=== PATIENT | female | born 1970 | race Caucasian/White ===

== ENCOUNTER 2020-06-09 13:25 | Outpatient (REF) | payer OTHER, SELFPAY | END 2020-06-09 13:26 | disposition home or self-care (01) | LOC: HO.LAB 13:25 | PROVIDERS: Visit Provider Internal Medicine | DX: Z20.828 Contact with and (suspected) exposure to other viral communicable diseases (principal) | CPT/HCPCS: C9803; U0003 ==

== ENCOUNTER 2025-05-31 09:52 | Outpatient (AMB) | payer OTHER, SELFPAY ==
--- NOTE | 2025-05-31 10:02 | MHC.OFFVIS ---
Vital Signs 05/31/25 10:03 Height 5 ft 6 in Weight 179 lb BMI 28.9 BP 130/82 Intake Visit Reasons: menopause symptoms Regulatory Affairs Strategy Specialist Required: Yes Regulatory Affairs Strategy Specialist Language: Director New Product Services: Regulatory Affairs Strategy Specialist Present (in person) Regulatory Affairs Strategy Specialist Name: Reba CHAUDHARY Information Interpreted: non-clinical & clinical Accompanied by: Self / Same As Patient Allergies naproxen Allergy (Mild, Verified 05/31/25 10:05) Stomach Upset Post menopausal: Yes HPI Comments Details: Presenting complaining of hot flashes over the last 2 years twice a day not associated with any quality of life disturbance or night sleep , in addition the patient has been complaining of hair loss has seen patient registration clerk had workup done and was referred to see OBGYN the rule out endocrinological cause of her hair loss. The patient reports mild hair growth over the last few years on her chin PFSH Medical History ADHD (attention deficit hyperactivity disorder) HTN (hypertension) Anxiety Depression Surgical History Hx of eye surgery Hx of abdominoplasty Hx of hernia repair Hx of gastric bypass Hx of tubal ligation Family History Mother HTN (hypertension) Father Heart disease Other Heart attack Social History Household Members Other:: daughter Housing: Apartment Alcohol intake: never Patient Tobacco Use Status: Former Tobacco user Years Smoked: 2 Current occupational status: disabled Sexual orientation: Straight/Heterosexual Gender identity: Female Female Reproductive History Menstrual Menopause type: natural Total pregnancies: 3 Full term: 2 Number of Living Children: 2 Ab spontaneous: 1 Review of Systems Const All systems reviewed & are unremarkable except as noted in HPI and below Reports as per HPI and Reports no additional complaints GI Reports no additional complaints Reports no additional complaints Physical Exam Vital Signs: Last Vital Signs BP 130/82 05/31/25 10:03 BMI result Body Mass Index 28.9 Assessment & Plan Assessment & Plan (1) Loss of hair: Code(s): L65.9 - Nonscarring hair loss, unspecified Category: Medical Plan: Will order 17 hydroxy progesterone and testosterone total and free if the results and treat accordingly (2) Hot flashes: Code(s): R23.2 - Flushing Category: Medical Plan: Discussed with the patient the options of treatment of hot flashes including hormonal replacement therapy, all the pros, cons, risks and benefits (benefits= prevention of hot flashes, atrophic vaginitis, osteoporosis, decrease colon ca risk; also discussed with the patient the risks of KS, Breast ca, DVT, PE, Strokes). In addition, discussed with the patient non hormonal treatment options for hot flashes treatment in surgical menopausal patient. Options discussed with the patient include the following: SSRI/SNRIs , difficulty has been demonstrated in multiple trials clinical response is more rapid (days) than typical response to SSRI for depression (weeks), they are equally effective in natural versus surgical menopause, they have similar modest benefit for hot flashes; In addition to Effexor and Gabapentin All pros and cons, risks and benefits of each were discussed with the patient, the patient would like to think about it and get back to us. Orders: Orders 17 Hydroxyprogesterone Today L65.9 - Nonscarring hair loss, unspecified Testosterone, Free/Total Today L65.9 - Nonscarring hair loss, unspecified Coding Level of Care Code New Pt Level 3 (90344) Diagnoses Loss of hair L65.9 Hot flashes R23.2
[2025-05-31 10:03] VITALS: BP 130/82; BMI 28.9
--- OUTSIDE RECORDS SUMMARY | 2025-05-31 11:51 | XMS_ITS | Encounter Summary ---
Author Organization [facility] Address [address] [place] [address] Care Team Providers Care Heel Compressor Name Role Phone Anabel Frausto MD Primary Care Prov ider Encounter Details Date Type Department Care Team (Latest Contact Info) Description 07/10/2024 Lab Requisition [facility] - Main Lab [address] [place] [phone] Addison Dawson MD [address] [facility] [address] [place] [phone] Encounter for gynecological examination (general) (routine) without abnormal findings Social History Tobacco Use Types Packs/Day Years Used Date Smoking Tobacco: Former Smokeless Tobacco: Never Alcohol Use Standard Drinks/Week Comments No 0 (1 standard drink = 0.6 oz pur e alcohol) Comments No Sex and Gender Information Value Date Recorded Sex Assigned at Female 09/01/2024 10:00 AM EST Legal Sex Female 8:59 AM EST Gender Identity Female 09/01/2024 10:00 AM EST Sexual Orientation Straight 09/01/2024 10 :00 AM EST documented as of this encounter Plan of Treatment Upcoming Encounters Date Type Department Care Team (Late st Contact Info) Description 07/06/2025 12:00 PM EST Ancillary Procedure [facility] [address] [facility] [address] [place] [phone] 08/17/2025 3:00 PM EST Office Visit Adult Medicine [address] [phone] Anabel Frausto MD [address] [place], [place] documented as of this encounter Procedures Procedure Name Priority Date/Time Associated Diagnosis Comments PAP SMEAR Routine 07/09/2024 12:00 AM EST Encounter for gynecological examination (general) (routine) without abnormal findings documented in this encounter Results * Pap smear (07/09/2024 12:00 AM EST) Interpretation Negative for intraepithelial lesion or malignancy 07/15/2024 10:13 AM [facility] at [address] EST General Categorization Negative 07/15/2024 10:13 AM [facility] Specimen Adequacy Satisfactory for evaluation, endocervical/yu sformation zone component present 07/15/2024 10:13 AM [facility] Pap Methodology Liquid Based Pap Test 07/15/2024 10:13 AM [facility] Disclaimer The Pap test is a screening test which carries an inherent false negative rate. These test results should be correlated with the patient's clinical findings and history. This Pap test was processed using an automated screening system. Technical cytopathology services provided by [facility], at [address] [place] [address] (CLIA # [id number]/Valentin Sales MD, [place] Worker.) 07/15/2024 10:13 AM [facility] Console Pap Interpretation Reported 07/15/2024 10:13 AM [facility] Brushing/Spatula Cervix uteri structure / Unknown 07/09/2024 07/10/2024 8:09 AM EST Addison Dawson MD LAB CYTOLOGY ORDERABLES Final Result [facility] [address] [place] [address], documented in this encounter Visit Diagnoses Diagnosis Encounter for gynecological examination (general) (routine) without abnormal findings documented in this encounter Care Teams Heel Compressor Relationship Specialty Start Date End Date Anabel Frausto MD [address] [place] [phone] PCP - General Internal Medicine 07/10/24 documented as of this encounter
--- OUTSIDE RECORDS SUMMARY | 2025-05-31 11:51 | XMS_ITS | Encounter Summary ---
Author Organization [facility] Address [address] [place] [address] Care Team Providers Care Manager Database Name Role Phone Anabel Frausto MD Primary Care Prov ider Encounter Details Date Type Department Care Team (Late st Contact Info) Description 01/22/2025 Lab Requisition [facility] - Main Lab [address] [place] [phone] Fran Marc MD [address] [place] [address] Dysuria Social History Tobacco Use Types Packs/Day Years Used Date Smoking Tobacco: Former Smokeless Tobacco: Never Alcohol Use Standard Drinks/Week Comments No 0 (1 standard drink = 0.6 oz pur e alcohol) Housing Instability Answer Date Recorde d Are you worried that in the next 2 months you may not have stable housing? No 11/05/2024 Food Access & Nutrition Answer Date Rec orded Do you have access to a vari ety of food including fruits and vegetables? Yes 11/05/2024 Health Literacy Answer Date Recorded How often do you need to hav e someone help you when you read instructions, pamphlets, or other written material from your doctor or pharmacy? Never 11/05/2024 Caregiver: How often do you need to have someone help you when you read instructions, pamphlets, or other written material from your doctor or pharmacy? Not on file 11/05/2024 Financial Risk Answer Date Recorded How hard is it for you to pa y for the very basics like food, housing, medical care, and air conditioning / heating? Not very hard 11/05/2024 Transportation Answer Date Recorded Has the lack of transportati on kept you from meetings, work, or from getting things needed for daily living? No Has the lack of transportati on kept you from medical appointments or from getting medications? No 11/05/2024 Social Isolation Answer Date Recorded How often do you feel lonely or isolated from th ose around you? Never 11/05/2024 Food Risk Answer Date Recorded Within the past 12 months we worried whether our food would run out before we got money to buy more. Never true 11/05/2024 Within the past 12 months th e food we bought just didn't last and we didn't have money to get more. Never true 11/05/2024 Dependent Care Answer Date Recorded Do you need help finding or paying for care for your loved ones. For example, child adolescent psychiatrist or elderly care for an older adult? No 11/05/2024 Education Answer Date Recorded Do you think completing more education or training, like finishing a GED, going to college, or learning a trade, would be helpful for you? N/A 11/05/2024 Employment and Income Answer Date Recor ded During the last four weeks, have you been actively looking for work? No 11/05/2024 Living Situation Answer Date Recorded What is your living situation? Unrecognized valu e 11/05/2024 Comments No Sex and Gender Information Value [...] Description 07/06/2025 12:00 PM EST Ancillary Procedure [facility] [address] [place] [address] 08/17/2025 3:00 PM EST Office Visit Adult Medicine [address] [phone] Anabel Frausto MD [address] [place] [address] documented as of this encounter Procedures Procedure Name Priority Date/Time Associated Diagnosis Comments BACTERIAL IDENTIFICATION AND SUSCEPTIBILITY, AEROBIC Routine 01/21/2025 12:00 AM EDT Dysuria documented in this encounter Results * Bacterial identification and susceptibility, aerobic (01/21/2025 12:00 AM EDT) Culture, Bacterial ID and Sensitivity Mixed urogenital johan, no uropathogens present. Suggest repeat specimen, if clinically indicated. 01/22/2025 1:[address] [facility] Other Urine specimen from urethra / Unknown 01/21/2025 01/22/2025 9:38 AM EDT us Fran Marc MD LAB MICROBIOLOGY - GENER AL ORDERABLES Final Result [facility] [address] [place] [address], documented in this encounter Visit Diagnoses Diagnosis Dysuria documented in this encounter Additional Health Concerns Assessment Noted Time PHQ-9 Depression Total Score: 0 11/06/19 10:13 AM EDT documented as of this encounter Care Teams Manager Database Relationship Specialty Start Date End Date Anabel Frausto MD [address] [place] [address] PCP - General Internal Medicine 07/10/24 documented as of this encounter
--- OUTSIDE RECORDS SUMMARY | 2025-05-31 11:52 | XMS_ITS | Clinical Summary ---
Author Organization [facility] [address] [facility] Address [address] [place] [address] Phone Care Team Providers Care Yarn Twister Name Role Phone Anabel Frausto MD Primary Care Prov ider Allergies Active Allergy Reactions Criticality Noted Date Comments Naproxen Other 01/29/2022 Upset stomach, gastric bypass Medications amphetamine-dextro amphetamine XR (ADDERALL XR) 30 mg 24 hr capsule Take 1 capsule (30 mg total) by mouth. 07/09/19 24 Active biotin 10,000 mcg tablet,chewable Chew 10,000 mcg. Active blood pressure test kit (BLOOD PRESSURE MONITOR MISC) 1 Device by Other route. 01/14/20 14 Active gabapentin (NEURONTIN) 800 mg tablet Take 1 tablet (800 mg total) by mouth. 07/18/19 24 Active hydrOXYzine HCL (ATARAX) 50 mg tablet Take 1 tablet (50 mg total) by mouth 3 (three) times a day. Active melatonin 5 mg disintegrating tablet Take 1 tablet (5 mg total) by mouth. 11/15/19 23 Active minoxidiL (LONITEN) 2.5 mg tablet Take 1 tablet (2.5 mg total) by mouth 1 (one) time each day. 10/06/19 23 Active multivit-minerals/ folic acid (CENTRUM ADULTS ORAL) Take by mouth. Active venlafaxine XR (EFFEXOR-XR) 150 mg 24 hr capsule Take 1 capsule (150 mg total) by mouth 1 (one) time each day. Active zolpidem CR (AMBIEN CR) 12.5 mg CR tablet Take 1 tablet (12.5 mg total) by mouth at bedtime as needed. Active cetirizine (ZyrTEC) 10 mg tablet TAKE 1 TABLET BY MOUTH DAILY. 30 tablet 4 08/17/19 25 Active amphetamine-dextro amphetamine (ADDERALL) 10 mg tablet 08/13/19 25 Active dutasteride (AVODART) 0.5 mg capsule Take 1 capsule (0.5 mg total) by mouth. 07/29/19 25 Active tamsulosin (FLOMAX) 0.4 mg 24 hr capsule 08/20/19 25 Active loratadine (CLARITIN) 10 mg tablet Take 1 tablet (10 mg total) by mouth 1 (one) time each day. 90 each 3 08/25/19 25 026 Active diphenhydrAMINE (Banophen) 25 mg capsule Take 1 capsule (25 mg total) by mouth 1 (one) time each day if needed for itching. 30 capsule 1 08/25/19 25 Active omeprazole (PriLOSEC) [address] capsule Take 1 capsule (40 mg total) by mouth 1 (one) time each day. 90 each 3 03/04/20 25 026 Active losartan (COZAAR) 25 mg tablet Take 1 tablet (25 mg total) by mouth 1 (one) time each day. 90 tablet 03/31/20 25 Active LORazepam (ATIVAN) 1 mg tablet Take 1 tablet (1 mg total) by mouth 1 (one) time each day in the morning. Max Daily Amount: 1 mg 03/31/20 25 Active hydrocortisone 1 % topical cream Apply topically 2 (two) times a day for 14 days. 30 g 05/19/20 25 025 Active spironolactone (ALDACTONE) 25 mg tablet Take 1 tablet (25 mg total) by mouth 1 (one) time each day. 02/09/20 25 025 Discontin ued(Thera py completed ) hydrocortisone 1 % topical cream Apply topically 2 (two) times a day for 14 days. 30 g 03/31/20 25 025 Discontin ued(Reord er) Active Problems Problem Noted Date Diagnosed Date Overweight (BMI 25.0-29.9) 03/31/2025 Prediabetes 06/01/2024 Overview (06/01/2024): A1c 5/9% Epigastric pain 04/07/2024 GERD (gastroesophageal reflux disease) 4 Postprandial epigastric pain 04/07/2024 HTN (hypertension) 11/13/2023 Lumbar spinal stenosis 01/27/2021 Overview (04/07/2024): Mild L4-L5 s/p MRI 12/2020 referred to neurosurgery They are starting her on aquatic physical therapy Obesity (BMI 30-39.9) 01/18/2021 Non-seasonal allergic rhinitis 01/14/2020 Iron deficiency anemia 01/14/2020 Overview (04/07/2024): Secondary to gastric bypass Anxiety and depression 04/17/2019 Overview (04/07/2024): [facility] for behavioral health Uterine fibroid 11/14/2018 Overview (04/07/2024): Seen on ultrasound of the pelvis. Fibroid noted to be 3.7 x 3.4 and a 2.2 x 2.4 fibroid noted in the uterine fundus. Nummular eczema 03/20/2018 Bipolar disorder ([facility] V24, [facility] V28) 10/29 Overview (04/07/2024): F/u [facility] Insomnia 11/14/2015 Encounters Date Type Department Care Team Description 05/19/2025 10:00 AM EST Office Visit Adult Medicine [address] [phone] Maya Chaudhary PA Strain of left trapezius muscle, initial encounter (Primary Dx); Primary hypertension; Nummular eczema; Need for hepatitis B vaccination 05/14/2025 Telephone Adult Medicine [address] [phone] Anabel Schultz MD 05/13/2025 Telephone Vascular Surgery - [place] [address] [place] [address] Tay Jeffery MD 03/31/2025 11:00 AM EDT Office Visit Adult Medicine [address] [phone] Akosua Lincoln PA Fluctuating blood pressure (Primary Dx); Primary hypertension; Menopausal symptoms; Overweight (BMI 25.0-29.9) 03/19/2025 10:25 AM EDT - 03/19/2025 10:36 AM EDT Emergency [facility] Emergency [address] [place] [address] Mahendra Bach MD Asymptomatic hypertension (Primary Dx) Discharge Disposition: Home or Self Care 03/19/2025 9:00 AM EDT Consult Plastic & Reconstructive Surgery [facility] [address] [place] [address] Chary Gonzalez PA Abdominal wall seroma, initial encounter (Primary Dx); Status post abdominoplasty 03/19/2025 Telephone Adult Medicine [address] [phone] Anabel Schultz MD 03/15/2025 Telephone Adult Medicine [address] [phone] Lizzie Kendall [place] 03/10/2025 9:06 AM EDT - 03/10/2025 11:59 PM EDT Hospital [facility] at [address] [address] Encounter for screening mammogram for malignant neoplasm of breast Discharge Disposition: Home or Self Care 03/02/2025 10:00 AM EDT Consult Adult Medicine [address] [phone] Anabel Schultz MD Preop cardiovascular exam (Primary Dx); Encounter for screening mammogram for malignant neoplasm of breast from Last 3 Months Immunizations Immunization Administration Dates Next Due Hepatitis B (Ubpwxmd-H-Lbeaf , Recombivax HB-Adult) 19yo and older 05/19/2025,06/15/2020,04/20/2020 Influenza Quadravalent, MDCK , 0.5ml, preservative free (Flucelvax) 6mo and older 09/09/2019 Influenza trivalent, with pr eservative (Fluzone; Afluria) 6mo and older 04/20/2020,03/06/2012 Pfizer SARS-CoV-2 COVID-19, mRNA, LNP-S, preservative free 11/05/2020,10/15/2020 Tdap Tetanus diptheria acell ular pertussis (Boostrix; Adacel) 7yo and older 11/02/2016,09/27/2012,06/19/2012 Surgical History Surgery Date Site/Laterality Comments HERNIA REPAIR 2014 PROCEDURE: HISTORICAL HERNIA REPAIR/CELESTINO OTHER SURGICAL HISTORY 2013 PROCEDURE: ---- OTHER ----; COMMENT: gastric bypass GASTRIC BYPASS PROCEDURE: IN GASTRIC RSTCV W/BYP W/SM INT RCNSTJ LIMIT ABSRPJ ESOPHAGOGASTRODUODENOSCOPY PROCEDURE: IN EGD TRANSORAL BIOPSY SINGLE/MULTIPLE; COMMENT: Formed at [facility] in 2018-positive for ulcer at end of stenosis COSMETIC SURGERY abdominoplasty Medical History Medical History Date Comments Bipolar disorder ([facility] V2 4, [facility] V28) 11/14/2015 DX:Bipolar disorder ([facility]); C OMMENT: F/u [facility]D Insomnia 11/14/2015 DX:Insomnia Chronic back pain 11/14/2015 DX:Chronic ricarda k pain Nummular eczema 03/20/2018 DX:Nummular ecze ma Uterine leiomyoma 11/14/2018 DX:Uterine lei omyoma History of gastric bypass 11/14/2018 DX:His tory of gastric bypass Anxiety and depression 04/17/2019 DX:Anxiet y and depression; COMMENT: [facility] for behavioral health Epigastric pain DX:Epigastric pa in GERD (gastroesophageal reflux disease) DX:GERD (gastroesophageal reflux disease) Postprandial epigastric pain DX: Postprandial epigastric pain HTN (hypertension) 11/13/2023 DX:HTN (hyper tension) Family History Medical History Relation Name Comments Hypertension Mother a fib, diabetes Relation Name Status Comments Daughter 1 Alive Daughter 2 Alive Father HTN, heart dise ase Mother Alive DM, HTN, hypoth yroidism Sister 1 Alive Sister 2 Alive Social History Tobacco Use Types Packs/Day Years Used Date Smoking Tobacco: Former Smokeless Tobacco: Former Tobacco Cessation:Counseling Given: Not Answered Alcohol Use Standard Drinks/Week Comments No 0 [...] for your loved ones. For example, child caregiver private home or elderly care for an older adult? [...] Orientation Straight 09/01/2024 10 :00 AM EST Obstetrics History Last Filed Vital Signs Vital Sign Reading Time Taken Comments Blood Pressure 136/80 05/19/2025 10:23 AM EST Pulse 95 05/19/2025 10:23 AM EST Temperature 36.4 C (97.6 F) 05/19/2025 10:02 AM EST Respiratory Rate 15 05/19/2025 10:02 AM EST Oxygen Saturation 100% 05/19/2025 10:02 AM EST Inhaled Oxygen Concentration - - Weight 80 kg (176 lb 6.4 oz) 05/19/2025 10:02 AM EST Height 167.6 cm (5' 6 ) 05/19/2025 10:02 AM EST Body Mass Index 28.47 05/19/2025 10:02 AM EST Plan of Treatment Upcoming Encounters Date Type Department Care Team (Late st Contact Info) Description 07/06/2025 12:00 PM EST Ancillary Procedure [facility] [address] [address] 08/17/2025 3:00 PM EST Office Visit Adult Medicine [address] [phone] Anabel Frausto MD [address] [place] [address] Health Maintenance Due Date Last Done Comments Pneumococcal Vaccine: 50+ Years (1 of 1 - PCV) 2021 Social Influencers of Health Screening 11/05/2025 11/05/2024 Hypertension/CHF/CAD Annual BMP Blood Test 03/02/2026 03/02/2025, 06/01/2024, 02/19/2024, Additional history exists Breast Cancer Screening 03/10/2026 03/10/20 25, 12/30/2023, 12/30/2023, Additional history exists DTaP,Tdap,and Td Vaccines (4 - Td or Tdap) 11/02/2026 11/02/2016, 09/27/2012, 06/19/2012 Cervical Cancer Screening: Pap Smear 07/09/2027 07/09/2024, 02/21/2023 Cholesterol Screening (Lipid Panel) 06/01/2029 06/01/2024, 05/21/2022 Colorectal Cancer Screening: Colonoscopy 07/23/2033 07/23/2023 RSV Immunization Adult Patients (1 - 1-dose 75+ series) 2046 Influenza Vaccine Discontinued 04/20/2020, , 03/06/2012 COVID-19 Vaccine Discontinued 08/01/2022, , 11/05/2020, Additional history exists Zoster Vaccines Completed 01/10/2024, 09/05/2023 HIV Screening Completed 06/01/2024 Hepatitis C Screening Completed 06/01/2024, 023 Depression Screening Completed 11/05/2024, 07/30/19 24 Hepatitis B Vaccines Completed 05/19/2025, 06/15/2020, 04/20/2020 HIB Vaccines Aged Out No longer eligi ble based on patient's age to complete this topic HPV Vaccines Aged Out No longer eligi ble based on patient's age to complete this topic Hepatitis A Vaccines Aged Out No long er eligible based on patient's age to complete this topic IPV Vaccines Aged Out No longer eligi ble based on patient's age to complete this topic MMR Vaccines Aged Out No longer eligi ble based on patient's age to complete this topic Meningococcal ACWY Vaccine Aged Out N o longer eligible based on patient's age to complete this topic Meningococcal B Vaccine Aged Out No l onger eligible based on patient's age to complete this topic RSV Immunization Patients Under 20 months Aged Out No longer eligible based on patient's age to complete this topic Varicella Vaccines Aged Out No longer eligible based on patient's age to complete this topic Procedures Procedure Name Priority Date/Time Associated Diagnosis Comments MG MAMMO DIGITAL SCREENING W JADIEL BILAT Routine 03/10/2025 9:30 AM EDT Encounter for screening mammogram for malignant neoplasm of breast CBC WITH AUTO DIFFERENTIAL Routine 03/02/2025 11:01 AM EDT Preop cardiovascular exam COMPREHENSIVE METABOLIC PANEL Routine 03/02/2025 11:01 AM EDT Preop cardiovascular exam CBC AND DIFFERENTIAL Routine 03/02/2025 11:01 AM EDT Preop cardiovascular exam PAP SMEAR Routine 07/09/2024 12:00 AM EST Encounter for gynecological examination (general) (routine) without abnormal findings HEPATITIS C ANTIBODY Routine 06/01/2024 11:46 AM EST Adult general medical examination Screen for STD (sexually transmitted disease) HIV 1, 2 ANTIBODY, P24 ANTIGEN WITH REFLEX TO DIFFERENTIATION Routine 06/01/2024 11:46 AM EST Adult general medical examination Screen for STD (sexually transmitted disease) LIPID PANEL WITH REFLEX TO DIRECT LDL Routine 06/01/2024 11:46 AM EST Adult general medical examination HM DEPRESSION SCREENING Routine 07/30/2023 COLONOSCOPY Routine 07/23/2023 from Last 3 Months or Most Recently Relevant to Health Maintenance Results * MG Mammo Digital Screening w Jadiel bilat (03/10/2025 9:30 AM EDT) Anatomical Region Laterality Modality Breast Bilateral Mammography 03/10/2025 9:40 AM EDT Impressions 03/10/2025 9:45 AM EDT No mammographic evidence of malignancy. A negative mammogram in the presence of a clinically suspicious palpable abnormality does not preclude the possibility of malignancy or alter the indications for biopsy. PQRI CPT II 3342F Code 32739, 12045 PQRI 225 CPT II 7025F TISSUE DENSITY: There are scattered areas of fibroglandular density. (BI-RADS category B) IMPRESSION: Benign. BI-RADS CATEGORY: 2 - BENIGN RECOMMENDATION: Screening bilateral mammogram is recommended in 1 year. Mammo Location: [facility], [address] [place] [address] -------- FINAL REPORT -------- Dictated By: Gera Kearney Dictated Date: 03/10/2025 09:40 ET Assigned Physician: Gera Kearney Reviewed and Electronically Signed By: Gera Kearney Signed Date: 03/10/2025 09:45 ET Workstation ID: [id number] Transcribed By: Self Edit Transcribed Date: 03/10/2025 09:40 ET Narrative 03/10/2025 9:45 AM EDT CLINICAL: The patient is a 55 years Female presenting for routine screening mammography. The patient underwent ultrasound-guided left breast biopsy on 12/25/2021, pathology benign. COMPARISON: Most recently 12/30/2023 and most remotely 11/06/2017. TECHNIQUE: Full-field digital mammography of the breasts bilaterally consisting of tomosynthesis in MLO and CC projection is performed in the [employer] [employer] 2000-D unit. Computer aided detection utilizing the [employer] system was utilized. FINDINGS: The breasts are again seen to be composed of a combination of fatty and fibroglandular elements. A tissue marker from the previous benign biopsy is again seen posteromedially in the left breast. Scattered areas of fat necrosis are again seen bilaterally. There is no suspicious cluster of microcalcifications, mass, or area of architectural distortion. There is no skin thickening or nipple retraction. Procedure Note Gera Kearney MD - 03/10/2025 CLINICAL: The patient is a 55 years Female presenting for routinescreening mammography. The patient underwent ultrasound-guided leftbreast biopsy on 12/25/2021, pathology benign. COMPARISON: Most recently 12/30/2023 and most remotely 11/06/2017. TECHNIQUE: Full-field digital mammography of the breasts bilaterallyconsisting of tomosynthesis in MLO and CC projection is performed in the[employer] 2000-D unit. Computer aided detection utilizing the [employer] was utilized. FINDINGS: The breasts are again seen to be composed of a combination offatty and fibroglandular elements. A tissue marker from the previousbenign biopsy is again seen posteromedially in the left breast. Scatteredareas of fat necrosis are again seen bilaterally. There is no suspiciouscluster of microcalcifications, mass, or area of architectural distortion.There is no skin thickening or nipple retraction. IMPRESSION: No mammographic evidence of malignancy. A negative mammogram in the presence of a clinically suspicious palpableabnormality does not preclude the possibility of malignancy or alter theindications for biopsy. PQRI CPT II 3342F Code 94131, 81424 PQRI 225 CPT II 7025F TISSUE DENSITY: There are scattered areas of fibroglandular density.(BI-RADS category B) IMPRESSION: Benign. BI-RADS CATEGORY: 2 - BENIGN RECOMMENDATION: Screening bilateral mammogram is recommended in 1 year. Mammo Location: [facility], [address] [place] [address] -------- FINAL REPORT -------- Dictated By: Gera Kearney Dictated Date: 03/10/2025 09:40 ET Assigned Physician: Gera Kearney Reviewed and Electronically Signed By: Gera Kearney Signed Date: 03/10/2025 09:45 ET Workstation ID: [id number] Transcribed By: Self Edit Transcribed Date: 03/10/2025 09:40 ET Anabel Frausto MD IMG BI PROCEDURES Final Result * (ABNORMAL) CBC auto differential (03/02/2025 11:01 AM EDT) WBC 6.7 4.8 - 10.8 K/mcL LAB HEMETOLOGY METHOD 03/02/2025 3:02 PM EDT [facility] RBC 4.30 3.80 - 4.80 M/mcL LAB HEMETOLOGY METHOD 03/02/2025 3:02 PM EDT [facility] Hemoglobin 12.1 11.5 - 16.0 g/dL LAB HEMETOLOGY METHOD 03/02/2025 3:02 PM EDT [facility] Hematocrit 38.1 35.0 - 47.0 % LAB HEMETOLOGY METHOD 03/02/2025 3:02 PM EDT [facility] MCV 87.8 79.0 - 98.0 FL LAB HEMETOLOGY METHOD 03/02/2025 3:02 PM [facility] MCH 27.9 27.0 - 32.0 pcg LAB HEMETOLOGY METHOD 03/02/2025 3:02 PM [facility] MCHC 31.8(L) 32.0 - 37.0 g/dL LAB HEMETOLOGY METHOD 03/02/2025 3:02 PM [facility] RDW 12.8 11.0 - 15.0 % LAB HEMETOLOGY METHOD 03/02/2025 3:02 PM [facility] Platelets 268 130 - 400 K/mcL LAB HEMETOLOGY METHOD 03/02/2025 3:02 PM [facility] MPV 11.2(H) 7.0 - 11.0 FL LAB HEMETOLOGY METHOD 03/02/2025 3:02 PM [facility] NRBC 0.0 <1.0 % LAB HEMETOLOGY METHOD 03/02/2025 3:02 PM [facility] NRBC Absolute 0.00 <0.10 K/mcL LAB HEMETOLOGY METHOD 03/02/2025 3:02 PM [facility] Neutrophils Relative 66.3 % LAB HEMETOLOGY METHOD 03/02/2025 3:02 PM [facility] Lymphocytes Relative 25.4 % LAB HEMETOLOGY METHOD 03/02/2025 3:02 PM [facility] Monocytes Relative 7.2 % LAB HEMETOLOGY METHOD 03/02/2025 3:02 PM [facility] Eosinophils Relative 0.3 % LAB HEMETOLOGY METHOD 03/02/2025 3:02 PM [facility] Basophils Relative 0.5 % LAB HEMETOLOGY METHOD 03/02/2025 3:02 PM [facility] Immature Granulocytes Relative 0.3 % LAB HEMETOLOGY METHOD 03/02/2025 3:02 PM EDT [facility] Neutrophils Absolute 4.42 1.50 - 7.00 K/mcL LAB HEMETOLOGY METHOD 03/02/2025 3:02 PM EDT [facility] Lymphocytes Absolute 1.69 1.00 - 5.00 K/mcL LAB HEMETOLOGY METHOD 03/02/2025 3:02 PM EDT [facility] Monocytes Absolute 0.48 0.20 - 1.00 K/mcL LAB HEMETOLOGY METHOD 03/02/2025 3:02 PM EDT [facility] Eosinophils Absolute 0.02 0.00 - 0.50 K/mcL LAB HEMETOLOGY METHOD 03/02/2025 3:02 PM EDT [facility] Basophils Absolute 0.03 0.00 - 0.20 K/mcL LAB HEMETOLOGY METHOD 03/02/2025 3:02 PM EDT [facility] Immature Granulocytes Absolute 0.02 0.00 - 0.03 K/mcL LAB HEMETOLOGY METHOD 03/02[facility]2025 [facility] Blood Venous blood specimen / Unknown Venipuncture / Unknown 03/02/2025 11:01 AM EDT 03/02/2025 11:01 AM EDT us Anabel Frausto MD LAB BLOOD ORDERABL ES Final Result [facility] [address] [place] [address], * Comprehensive metabolic panel (03/02/2025 11:01 AM EDT) Sodium 139 133 - 145 mmol/L LAB CHEMISTRY METHOD 03/02/2025 7:35 PM EDT [facility] Potassium 4.2 3.5 - 5.5 mmol/L LAB CHEMISTRY METHOD 03/02/2025 7:35 PM [facility] Chloride 102 96 - 110 mmol/L LAB CHEMISTRY METHOD 03/02/2025 7:35 PM [facility] CO2 31 21 - 32 mmol/L LAB CHEMISTRY METHOD 03/02/2025 7:35 PM [facility] Anion Gap 6 3 - 11 LAB CHEMISTRY METHOD 03/02/2025 7:35 PM [facility] Glucose 85 70 - 100 mg/dL LAB CHEMISTRY METHOD 03/02/2025 7:35 PM [facility] BUN 19 5 - 25 mg/dL LAB CHEMISTRY METHOD 03/02/2025 7:35 PM [facility] Creatinine 0.66 0.50 - 1.10 mg/dL LAB CHEMISTRY METHOD 03/02/2025 7:35 PM [facility] eGFR 105 >=60 mL/min/1. 73m2 LAB CHEMISTRY METHOD 03/02/2025 7:35 PM [facility] Comment:Calculation based on the Chronic Kidney Disease Epidemiology Collaboration (CKD-EPI) equation refit without adjustment for race. BUN/Creatinine Ratio 28.8 LAB CHEMISTRY METHOD 03/02/2025 7:35 PM [facility] Calcium 9.3 8.5 - 10.5 mg/dL LAB CHEMISTRY METHOD 03/02/2025 7:35 PM [facility] AST (SGOT) 23 10 - 42 unit/L LAB CHEMISTRY METHOD 03/02/2025 7:35 PM [facility] ALT (SGPT) 46 10 - 60 unit/L LAB CHEMISTRY METHOD 03/02/2025 7:35 PM [facility] Alkaline Phosphatase 79 42 - 121 unit/L LAB CHEMISTRY METHOD 03/02/2025 7:35 PM [facility] Total Protein 7.0 6.0 - 8.0 g/dL LAB CHEMISTRY METHOD 03/02/2025 7:35 PM EDT [facility] Albumin 4.2 3.2 - 5.0 g/dL LAB CHEMISTRY METHOD 03/02/2025 7:35 PM EDT [facility] Total Bilirubin 0.4 0.0 - 1.4 mg/dL LAB CHEMISTRY METHOD 03/02/2025 7:35 PM EDT [facility] Blood Venous blood specimen / Unknown Venipuncture / Unknown 03/02/2025 11:01 AM EDT 03/02/2025 11:01 AM EDT us Anabel Frausto MD LAB BLOOD ORDERABL ES Final Result [facility] [address] [place] [address], * Pap smear (07/09/2024 12:00 AM EST) Interpretation Negative for intraepithelial lesion or malignancy 07/15/2024 10:13 AM [facility] at 1013 EST General Categorization Negative 07/15/2024 10:13 AM [facility] Specimen Adequacy Satisfactory for evaluation, endocervical/yu sformation zone component present 07/15/2024 10:13 AM [facility] Pap Methodology Liquid Based Pap Test 07/15/2024 10:13 AM [facility] Disclaimer The Pap test is a screening test which carries an inherent false negative rate. These test results should be correlated with the patient's clinical findings and history. This Pap test was processed using an automated screening system. Technical cytopathology services provided by [facility], at [address] [place] [address] (CLIA # [id number]/Valentin Sales MD, [employer].) 07/15/2024 10:13 AM EST [facility] Console Pap Interpretation Reported 07/15/2024 10:13 AM EST [facility] Brushing/Spatula Cervix uteri structure / Unknown 07/09/2024 07/10/2024 8:09 AM EST Addison Dawson MD LAB CYTOLOGY ORDERABLES Final Result Performing Organization Address City/[facility]/ZIP Co de Phone Number [facility] [address] [place] [address], [place] [phone] * Hepatitis C antibody (06/01/2024 11:46 AM EST) Pathologist [facility] Hepatitis C Antibody Negative Negative LAB CHEMISTRY METHOD 06/01/2024 4:17 PM EST [facility] Blood Venous blood specimen / Unknown Venipuncture / Unknown 06/01/2024 11:46 AM EST 06/01/2024 11:46 AM EST Maya HILTON LAB BLOOD ORDERABLES Final Resul t Performing Organization Address [facility]/ZIP Co de Phone Number [facility] [address] [place] [address], [place] [phone] * HIV 1,2 antibody, p24 antigen with reflex to differentiation (06/01/2024 11:46 AM EST) Pathologist [facility] HIV Combo AB/AG Negative Negative LAB CHEMISTRY METHOD 06/01/2024 4:18 PM EST [facility] Blood Venous blood specimen / Unknown Venipuncture / Unknown 06/01/2024 11:46 AM EST 06/01/2024 11:46 AM EST Narrative [facility] - 06/01/2024 4:18 PM EST This assay is a 4th generation assay allowing for earlier detection of HIV infection by detecting the presence of the HIV-1 p24 antigen as well as the traditional antibodies to HIV type 1 (including group O) and type 2. Use of a 4th generation assay is the current CDC recommendation for HIV screening. us Maya HILTON LAB BLOOD ORDERABLES Final Resul t [facility] [address] [place] [address], [place] [phone] * (ABNORMAL) Lipid panel with reflex to direct LDL (06/01/2024 11:46 AM EST) [facility] Cholesterol 201(H) 0 - 200 mg/dL LAB CHEMISTRY METHOD 06/01/2024 3:47 PM EST [facility] Triglycerides 97 0 - 150 mg/dL LAB CHEMISTRY METHOD 06/01/2024 3:47 PM EST [facility] HDL 65 >=40 mg/dL LAB CHEMISTRY METHOD 06/01/2024 3:47 PM EST [facility] LDL Calculated 117(H) 0 - 100 mg/dL LAB CHEMISTRY METHOD 06/01/2024 3:47 PM EST [facility] VLDL Cholesterol Mainor 19.4 mg/dL LAB CHEMISTRY METHOD 06/01/2024 3:47 PM EST [facility] Non HDL Chol. (LDL+VLDL) 136 <145 mg/dL LAB CHEMISTRY METHOD 06/01/2024 3:47 PM EST [facility] [facility] Chol/HDL Ratio 3.1 0.0 - 4.4 LAB CHEMISTRY METHOD 06/01/2024 3:47 PM [facility] Blood Venous blood specimen / Unknown Venipuncture / Unknown 06/01/2024 11:46 AM EST 06/01/2024 11:46 AM EST us Maya HILTON LAB BLOOD ORDERABLES Final Resul t Performing Organization Address [facility]/ZIP Co de Phone Number [facility] [address] [place] [address], [place] [phone] * Hm Depression Screening (07/30/2023) Depression Screening abstracted us Historical Provider HEALTH MAINTENANCE Final Result * Colonoscopy (07/23/2023) Colonoscopy no interpretation , abstracted Anatomical Region Laterality Modality Other us Historical Provider HEALTH MAINTENANCE Final Result from Last 3 Months or Most Recently Relevant to Health Maintenance Insurance [facility] [employer] Care Teams Yarn Twister Relationship Specialty Start Date End Date Anabel Frausto MD [address] [place] [phone] PCP - General Internal Medicine 07/10/24
== END 2025-05-31 11:13 | disposition home or self-care (01) ==
LOC: HO.HWS 09:53
PROVIDERS: Visit Provider Obstetrics & Gynecology
DX: L65.9 Nonscarring hair loss, unspecified (principal); R23.2 Flushing
CPT/HCPCS: 99203

== ENCOUNTER 2025-05-31 09:52 | Outpatient (REF) | payer OTHER, SELFPAY | END 2025-05-31 09:53 | disposition home or self-care (01) | LOC: HO.LAB 09:52 | PROVIDERS: Visit Provider Obstetrics & Gynecology | DX: R23.2 Flushing (principal); L65.9 Nonscarring hair loss, unspecified; Z98.51 Tubal ligation status | CPT/HCPCS: 36415; 83498; 84402; 84403; 99202 ==

== ENCOUNTER 2025-06-17 09:53 | Outpatient (AMB) | payer OTHER, SELFPAY ==
--- NOTE | 2025-06-17 09:53 | MHC.OFFVIS ---
Intake Visit Reasons: TV 2 week lab results Internal Audit Director Required: Yes Internal Audit Director Language: Encapsulator Services: Internal Audit Director Present (in person) Internal Audit Director Name: Reba CHAUDHARY Information Interpreted: non-clinical & clinical Allergies naproxen Allergy (Mild, Verified 06/17/25 09:54) Stomach Upset HPI Comments Details: The patient is schedule a telehealth visit for follow-up Testosterone total and free and 17 hydroxyprogesterone with a normal PFSH Medical History ADHD (attention deficit hyperactivity disorder) HTN (hypertension) Anxiety Depression Surgical History Hx of eye surgery Hx of abdominoplasty Hx of hernia repair Hx of gastric bypass Hx of tubal ligation Family History Mother HTN (hypertension) Father Heart disease Other Heart attack Social History Household Members Other:: daughter Housing: Apartment Alcohol intake: never Patient Tobacco Use Status: Former Tobacco user Years Smoked: 2 Current occupational status: disabled Sexual orientation: Straight/Heterosexual Gender identity: Female Review of Systems Const All systems reviewed & are unremarkable except as noted in HPI and below Reports as per HPI and Reports no additional complaints GI Reports no additional complaints Reports no additional complaints Telehealth Telehealth Telehealth Platform: [facility] Location of provider rendering services: practice address Location of patient: address on file Patient Identification confirmed using: Name, : Yes Telehealth method: video Patient verbally consented to treatment: Yes Patient verbally consented to billing insurance company: Yes Patient informed of any privacy concerns related to visit: Yes Minutes spent on Phone/Video with Pt.: 4 Assessment & Plan Assessment & Plan (1) Loss of hair: Code(s): L65.9 - Nonscarring hair loss, unspecified Category: Medical Plan: Discussed with the patient the results of her androgen levels with a normal, the patient was reassured. Instructions given the patient to follow up with her PCP and diesel engine mechanic for her loss. I spent a total of 20 minutes reviewing the chart, talking to the patient via video and documenting in the medical record. Coding Level of Care Code Tele Est Pt Level 3 (15638) Diagnoses Loss of hair L65.9
--- OUTSIDE RECORDS SUMMARY | 2025-06-17 12:07 | XMS_ITS | Encounter Summary ---
Author Organization [facility] Address [address] [place] [address] Care Team Providers Care Rn Informatics Name Role Phone Anabel Frausto MD Primary Care Prov ider Encounter Details Date Type Department Care Team (Latest Contact Info) Description 07/10/2024 Lab Requisition [facility] - Main Lab [address] [place] [phone] Addison Dawson MD 299 [facility] [address] [place] [phone] Encounter for gynecological examination (general) (routine) without [...] Description 07/06/2025 12:00 PM EST Ancillary Procedure [facility] [address] [facility] [address] [place] [phone] 08/17/2025 3:00 PM EST Office Visit Adult Medicine [address] [phone] Anabel Frausto MD [address] [place], [place] documented as of this encounter Procedures Procedure Name Priority Date/Time Associated Diagnosis Comments PAP SMEAR Routine 07/09/2024 12:00 AM EST Encounter for gynecological examination (general) (routine) without abnormal findings documented in this encounter Results * Pap smear (07/09/2024 12:00 AM EST) Interpretation Negative for intraepithelial lesion or malignancy 07/15/2024 10:13 AM [facility] at 1013 EST General Categorization Negative 07/15/2024 10:13 AM [facility] Specimen Adequacy Satisfactory for evaluation, endocervical/yu sformation zone component present 07/15/2024 10:13 AM [facility] Pap Methodology Liquid Based Pap Test 07/15/2024 10:13 AM [facility] Disclaimer The Pap test is a screening test which carries an inherent false negative rate. These test results should be correlated with the patient's clinical findings and history. This Pap test was processed using an automated screening system. Technical cytopathology services provided by [facility], at [address] [place] [address] (CLIA # [id number]/Valentin Sales MD, Electro Tech.) 07/15/2024 10:13 AM [facility] Console Pap Interpretation Reported 07/15/2024 10:13 AM [facility] Brushing/Spatula Cervix uteri structure / Unknown 07/09/2024 07/10/2024 8:09 AM EST Addison Dawson MD LAB CYTOLOGY ORDERABLES Final Result [facility] [address] [place] [address], documented in this encounter Visit Diagnoses Diagnosis Encounter for gynecological examination (general) (routine) without abnormal findings documented in this encounter Care Teams Rn Informatics Relationship Specialty Start Date End Date Anabel Frausto MD [address] [place] [phone] PCP - General Internal Medicine 07/10/24 documented as of this encounter
--- OUTSIDE RECORDS SUMMARY | 2025-06-17 12:07 | XMS_ITS | Clinical Summary ---
Author Organization [facility] [address] [facility] Address [address] [place] [address] Phone Care Team Providers Care Director Search Name Role Phone Anabel Frausto MD Primary [...] for 14 days. 30 g 05/19/20 25 Active spironolactone (ALDACTONE) 25 mg tablet Take [...] uterine fundus. Nummular eczema 03/20/2018 Bipolar disorder 11/14/2015 Overview (04/07/2024): F/u CHD Insomnia 11/14/2015 Encounters Date Type Department Care Team Description 05/19/2025 10:00 AM EST Office Visit Adult Medicine [address] [phone] Maya Chaudhary PA Strain of left trapezius muscle, initial encounter (Primary Dx); Primary hypertension; Nummular eczema; Need for hepatitis B vaccination 05/14/2025 Telephone Adult Medicine [address] [phone] Anabel Dale MD 05/13/2025 Telephone [facility] [place] [address] [place] [address] Tay Jeffery MD 03/31/2025 11:00 AM EDT Office Visit Adult Medicine [facility] [address] [place], [place] [phone] Akosua Lincoln PA Fluctuating blood pressure (Primary Dx); Primary hypertension; Menopausal symptoms; Overweight (BMI 25.0-29.9) 03/19/2025 10:25 AM EDT - 03/19/2025 10:36 AM EDT Emergency [facility] Emergency [address] [place] [phone] Mahendra Bach MD Asymptomatic hypertension (Primary Dx) Discharge Disposition: Home or Self Care 03/19/2025 9:00 AM EDT Consult Plastic & Reconstructive [facility] [place] [address] [place] [address] Chary Gonzalez PA Abdominal wall seroma, initial encounter (Primary Dx); Status post abdominoplasty 03/19/2025 Telephone Adult Medicine [address] [phone] Anabel Dale MD from Last 3 Months Immunizations Immunization Administration Dates Next Due Hepatitis B (Urvxkam-D-Lnbxd , Recombivax HB-Adult) 19yo and older 05/19/2025,06/15/2020,04/20/2020 [...] ----; COMMENT: gastric bypass GASTRIC BYPASS PROCEDURE: WI GASTRIC RSTCV W/BYP W/SM INT RCNSTJ LIMIT ABSRPJ ESOPHAGOGASTRODUODENOSCOPY PROCEDURE: WI EGD TRANSORAL BIOPSY SINGLE/MULTIPLE; COMMENT: Formed at [facility] in 2018-positive for ulcer at end of stenosis COSMETIC SURGERY abdominoplasty Medical History Medical History Date Comments Bipolar disorder ([facility] V2 4, [facility] V28) 11/14/2015 DX:Bipolar disorder (HCC); C OMMENT: F/u CHD Insomnia 11/14/2015 DX:Insomnia [...] Orientation Straight 09/01/2024 10 :00 AM EST Last Filed Vital Signs Vital Sign Reading [...] Description 07/06/2025 12:00 PM EST Ancillary Procedure [facility] - [address] [place] [address] 08/17/2025 3:00 PM EST Office Visit Adult Medicine [facility] [address] [place], [place] [phone] Anabel Frausto MD [address] [place], [place] Health Maintenance Due Date Last Done Comments Drug Screen 1971 Non-Opioid Controlled Substance Agreement 1971 Pneumococcal Vaccine: 50+ Years (1 of 1 - PCV) 2021 Social Influencers of Health Screening 11/05/2025 11/05/2024 Hypertension/CHF/CAD Annual BMP Blood Test 03/02/2026 03/02/2025, 06/01/2024, 02/19/2024, Additional history exists Breast Cancer Screening 03/10/2026 03/10/20, 12/30/2023, 12/30/2023, Additional history exists DTaP,Tdap,and Td [...] Procedure Name Priority Date/Time Associated Diagnosis Comments EXTERNAL LAB - COLLECTION AND HANDLING Routine 05/05/2025 9:16 AM EST MG MAMMO DIGITAL SCREENING W JADIEL BILAT Routine 03/10/2025 9:30 AM EDT Encounter for screening mammogram for malignant neoplasm of breast COMPREHENSIVE METABOLIC PANEL Routine 03/02/2025 11:01 AM [...] 11:46 AM EST Adult general medical examination DEPRESSION SCREENING Routine 07/30/2023 COLONOSCOPY Routine 07/23/2023 from Last 3 Months or Most Recently Relevant to Health Maintenance Results * External lab - collection and handling (05/05/2025 9:16 AM EST) Blood Venous blood specimen / Unknown us Historical Provider LAB BLOOD ORDERABLES Padmaja l Result * MG Mammo Digital Screening w Jadiel bilat (03/10/2025 9:30 AM EDT) Anatomical Region Laterality Modality Breast Bilateral Mammography 03/10/2025 9:40 AM EDT Impressions 03/10/2025 9:45 AM EDT No mammographic evidence of malignancy. A negative mammogram in the presence of a clinically suspicious palpable abnormality does not preclude the possibility of malignancy or alter the indications for biopsy. PQRI CPT II 3342F Code 92271, 48447 PQRI 225 CPT II 7025F TISSUE DENSITY: There are scattered areas of fibroglandular density. (BI-RADS category B) IMPRESSION: Benign. BI-RADS CATEGORY: 2 - BENIGN RECOMMENDATION: Screening bilateral mammogram is recommended in 1 year. Mammo Location: [facility], [address] [place] [id number] -------- FINAL REPORT -------- Dictated By: Gera Kearney Dictated Date: 03/10/2025 09:40 ET Assigned Physician: Gera Kearney Reviewed and Electronically Signed By: Gera Kearney Signed Date: 03/10/2025 09:45 ET Workstation ID: [id number] Transcribed By: Self Edit Transcribed Date: 03/10/2025 [...] and CC projection is performed in the Geek[employer]ic[employer]he 2000-D unit. Computer aided detection utilizing the iCAD system was utilized. FINDINGS: The breasts are [...] MLO and CC projection is performed in theGeekChicDailyographe 2000-D unit. Computer aided detection utilizing the iCADsystem was utilized. FINDINGS: The breasts are again [...] for biopsy. PQRI CPT II 3342F Code 93708, 17822 PQRI 225 CPT II 7025F TISSUE DENSITY: There are scattered areas of fibroglandular density.(BI-RADS category B) IMPRESSION: Benign. BI-RADS CATEGORY: 2 - BENIGN RECOMMENDATION: Screening bilateral mammogram is recommended in 1 year. Mammo Location: [facility], [address] [place] [phone] -------- FINAL REPORT -------- Dictated By: Gera Kearney Dictated Date: 03/10/2025 09:40 ET Assigned Physician: Gera Kearney Reviewed and Electronically Signed By: Gera Kearney Signed Date: 03/10/2025 09:45 ET Workstation ID: [id number] Transcribed By: Self Edit Transcribed Date: 03/10/2025 09:40 ET Anabel Frausto MD IMG BI PROCEDURES Final Result * Comprehensive metabolic panel (03/02/2025 11:01 AM EDT) Sodium 139 133 - 145 mmol/L LAB CHEMISTRY METHOD 03/02/2025 7:35 PM [facility] Potassium 4.2 3.5 - 5.5 mmol/L LAB CHEMISTRY METHOD 03/02/2025 7:35 PM [facility] Chloride 102 96 - 110 mmol/L LAB CHEMISTRY METHOD 03/02/2025 7:35 PM [facility] CO2 31 21 - 32 mmol/L LAB CHEMISTRY METHOD 03/02/2025 7:35 PM [facility] Anion Gap 6 3 - 11 LAB CHEMISTRY METHOD 03/02/2025 7:35 PM [facility] Glucose 85 70 - 100 mg/dL LAB CHEMISTRY METHOD 03/02/2025 7:35 PM [facility] BUN 19 5 - 25 mg/dL LAB CHEMISTRY METHOD 03/02/2025 7:35 PM [facility] Creatinine 0.66 0.50 - 1.10 mg/dL LAB CHEMISTRY METHOD 03/02/2025 7:35 PM [facility] eGFR 105 >=60 mL/min/1. 73m2 LAB CHEMISTRY METHOD 03/02/2025 7:35 PM [facility] Comment:Calculation based on the Chronic Kidney Disease Epidemiology Collaboration (CKD-EPI) equation refit without adjustment for race. BUN/Creatinine Ratio 28.8 LAB CHEMISTRY METHOD 03/02/2025 7:35 PM [facility] Calcium 9.3 8.5 - 10.5 mg/dL LAB CHEMISTRY METHOD 03/02/2025 7:35 PM [facility] AST (SGOT) 23 10 - 42 unit/L LAB CHEMISTRY METHOD 03/02/2025 7:35 PM [facility] ALT (SGPT) 46 10 - 60 unit/L LAB CHEMISTRY METHOD 03/02/2025 7:35 PM [facility] Alkaline Phosphatase 79 42 - 121 unit/L LAB CHEMISTRY METHOD 03/02/2025 7:35 PM [facility] Total Protein 7.0 6.0 - 8.0 g/dL LAB CHEMISTRY METHOD 03/02/2025 7:35 PM [facility] Albumin 4.2 3.2 - 5.0 g/dL LAB CHEMISTRY METHOD 03/02/2025 7:35 PM [facility] Total Bilirubin 0.4 0.0 - 1.4 mg/dL LAB CHEMISTRY METHOD 03/02/2025 7:35 PM [facility] Blood Venous blood specimen / Unknown Venipuncture / Unknown 03/02/2025 11:01 AM EDT 03/02/2025 11:01 AM EDT us Anabel Frausto MD LAB BLOOD ORDERABL ES Final Result [facility] [address] [place] [address], * Pap smear (07/09/2024 12:00 AM EST) Interpretation Negative for intraepithelial lesion or malignancy 07/15/2024 10:13 AM EST [facility] at 1013 EST General Categorization Negative 07/15/2024 10:13 AM [facility] Specimen Adequacy Satisfactory for evaluation, endocervical/yu sformation zone component present 07/15/2024 10:13 AM [facility] Pap Methodology Liquid Based Pap Test 07/15/2024 10:13 AM [facility] Disclaimer The Pap test is a screening test which carries an inherent false negative rate. These test results should be correlated with the patient's clinical findings and history. This Pap test was processed using an automated screening system. Technical cytopathology services provided by [facility], at [address] [place] [id number] (CLIA # [id number]/Valentin Sales MD, Insurance And Financial Services Agent.) 07/15/2024 10:13 AM [facility] Console Pap Interpretation Reported 07/15/2024 10:13 AM [facility] Brushing/Spatula Cervix uteri structure / Unknown 07/09/2024 07/10/2024 8:09 AM EST Addison Dawson MD LAB CYTOLOGY ORDERABLES Final Result Performing Organization Address City/[facility]/ZIP Co de Phone Number [facility] [address] [place] [address], * Hepatitis C antibody (06/01/2024 11:46 AM EST) Hepatitis C Antibody Negative Negative LAB CHEMISTRY METHOD 06/01/2024 4:17 PM EST [facility] Blood Venous blood specimen / Unknown Venipuncture / Unknown 06/01/2024 11:46 AM EST 06/01/2024 11:46 AM EST Maya HILTON LAB BLOOD ORDERABLES Final Resul t [facility] [address] [place] [address], [place] [phone] * HIV 1,2 antibody, p24 antigen with reflex to differentiation (06/01/2024 11:46 AM EST) [facility] [address] HIV Combo AB/AG Negative Negative LAB CHEMISTRY METHOD 06/01/2024 4:18 PM [facility] Blood Venous blood specimen / Unknown Venipuncture / Unknown 06/01/2024 11:46 AM EST 06/01/2024 11:[address] [facility] - 06/01/2024 4:18 PM EST This assay is a 4th generation assay allowing for earlier detection of HIV infection by detecting the presence of the HIV-1 p24 antigen as well as the traditional antibodies to HIV type 1 (including group O) and type 2. Use of a 4th generation assay is the current CDC recommendation for HIV screening. Maya HILTON LAB BLOOD ORDERABLES Final Resul t [facility] [address] [place] [address], [place] [phone] * (ABNORMAL) Lipid panel with reflex to direct LDL (06/01/2024 11:46 AM EST) [facility] [address] Cholesterol 201(H) 0 - 200 mg/dL LAB CHEMISTRY METHOD 06/01/2024 3:47 PM [facility] Triglycerides 97 0 - 150 mg/dL LAB CHEMISTRY METHOD 06/01/2024 3:47 PM [facility] HDL 65 >=40 mg/dL LAB CHEMISTRY METHOD 06/01/2024 3:47 PM [facility] LDL Calculated 117(H) 0 - 100 mg/dL LAB CHEMISTRY METHOD 06/01/2024 3:47 PM [facility] VLDL Cholesterol Mainor 19.4 mg/dL LAB CHEMISTRY METHOD 06/01/2024 3:47 PM EST [facility] Non HDL Chol. (LDL+VLDL) 136 <145 mg/dL LAB CHEMISTRY METHOD 06/01/2024 3:47 PM EST [facility] Chol/HDL Ratio 3.1 0.0 - 4.4 LAB CHEMISTRY METHOD 06/01/2024 3:47 PM EST [facility] Blood Venous blood specimen / Unknown Venipuncture / Unknown 06/01/2024 11:46 AM EST 06/01/2024 11:46 AM EST Maya HILTON LAB BLOOD ORDERABLES Final Resul t [facility] [address] [place] [address], * Depression Screening (07/30/2023) Depression Screening abstracted Historical Provider HEALTH MAINTENANCE Final Result * Colonoscopy (07/23/2023) Colonoscopy no interpretation , abstracted Anatomical Region Laterality Modality Other Historical Provider HEALTH MAINTENANCE Final Result from Last 3 Months or Most Recently Relevant to Health Maintenance Insurance [facility] [employer] Care Teams Director Search Relationship Specialty Start Date End Date Anabel Frausto MD [address] [place] [address] PCP - General Internal Medicine 07/10/24
--- OUTSIDE RECORDS SUMMARY | 2025-06-17 12:07 | XMS_ITS | Encounter Summary ---
Author Organization [facility] Address [address] [place] [address] Care Team Providers Care Extract Wringer Name Role Phone Anabel Frausto MD Primary Care Prov ider Encounter Details Date Type Department Care Team (Late st Contact Info) Description 01/22/2025 Lab Requisition [facility] - Main Lab [address] [place] [phone] Fran Marc MD [address] [place] [address] Dysuria Social History Tobacco Use Types Packs/Day [...] care for your loved ones. For example, early childhood services coordinator or elderly care for an older adult? [...] Description 07/06/2025 12:00 PM EST Ancillary Procedure [facility] - [address] [place] [address] 08/17/2025 3:00 PM EST Office Visit Adult Medicine [address] [phone] Anabel Frausto MD [address] [place] [address] documented as of this encounter Procedures Procedure Name Priority Date/Time Associated Diagnosis Comments BACTERIAL IDENTIFICATION AND SUSCEPTIBILITY, AEROBIC Routine 01/21/2025 12:00 AM EDT Dysuria documented in this encounter Results * Bacterial identification and susceptibility, aerobic (01/21/2025 12:00 AM EDT) Culture, Bacterial ID and Sensitivity Mixed urogenital johan, no uropathogens present. Suggest repeat specimen, if clinically indicated. 01/22/2025 1:45 PM EDT [facility] Other Urine specimen from urethra / Unknown 01/21/2025 01/22/2025 9:38 AM EDT us Fran Marc MD LAB MICROBIOLOGY - GENER AL ORDERABLES Final Result [facility] [address] [place] [address], documented in this encounter Visit Diagnoses Diagnosis Dysuria documented in this encounter Additional Health Concerns Assessment Noted Time PHQ-9 Depression Total Score: 0 11/06/19 10:13 AM EDT documented as of this encounter Care Teams Extract Wringer Relationship Specialty Start Date End Date Anabel Frausto MD [address] [place] [address] PCP - General Internal Medicine 07/10/24 documented as of this encounter
== END 2025-06-17 10:04 | disposition home or self-care (01) ==
LOC: HO.HWS 09:53
PROVIDERS: Visit Provider Obstetrics & Gynecology
DX: L65.9 Nonscarring hair loss, unspecified (principal)
CPT/HCPCS: 99213